=== PATIENT | female | born 1995 | race Two or more races ===

== ENCOUNTER 2024-06-29 09:42 | Emergency (ER) | payer OTHER ==
[~2024-06-29] VITALS: Ht 157.5 cm; Wt 56.7 kg
[2024-06-29 10:56] LABS: PH,URINE 6.5 (5.0-8.0); URINE APPEARANCE Clear; URINE BILIRRUBIN Negative (NEGATIVE); URINE BLOOD NHT; URINE COLOR Yellow; URINE GLUCOSE Negative (NEGATIVE); URINE KETONE Negative (NEGATIVE); URINE LEUKOCYTE Trace; URINE NITRATE Negative; URINE PROTEIN Negative (NEGATIVE); URINE UROBILINOGEN 0.2 E.U./dl
[2024-06-29 10:57] LABS: HEMATOCRIT 40.8 % (36.0-45.00); MEAN CORPUSCULAR HEMOGLOBIN 29.9 pg (27.00-32.0); MEAN CORPUSCULAR HGB CONC 34.4 g/dl (32.0-36.0); PLATELET COUNT 257 K/uL (150-450); RED BLOOD COUNT 4.68 M/uL (4.00-6.00); RED CELL DISTRIBUTION WIDTH 13.6 % (11.5-14.5)
[2024-06-29 11:00] LABS: URINE BACTERIA 828.6 uL (0.0-1933); URINE EPITHELIAL CELLS 23.5 uL (0.0-38.8); URINE RBC 3.8 uL (0.0-20.8); URINE WBC 31.3 uL (0.0-23.2)
== END 2024-06-29 13:12 | disposition home or self-care (01) ==
LOC: ER 09:44
PROVIDERS: General Practice
DX: O20.8 Other hemorrhage in early pregnancy (principal); Z3A.08 8 weeks gestation of pregnancy

== ENCOUNTER 2024-07-07 06:16 | Day surgery (SDC) | payer OTHER ==
[2024-07-06 11:56] LABS: HEMOGLOBIN 13.7 g/dL (12.0-15.00); MEAN CELL VOLUME 89.2 fL (80.00-100.00); MEAN CORPUSCULAR HEMOGLOBIN 29.8 pg (27.00-32.0); MEAN CORPUSCULAR HGB CONC 33.4 g/dl (32.0-36.0); PLATELET COUNT 268 K/uL (150-450); RED CELL DISTRIBUTION WIDTH 13.6 % (11.5-14.5)
[2024-07-06 11:58] LABS: PH,URINE 6.5 (5.0-8.0); URINE APPEARANCE Clear; URINE BILIRRUBIN Negative (NEGATIVE); URINE BLOOD Negative; URINE COLOR Yellow; URINE GLUCOSE Negative (NEGATIVE); URINE KETONE Trace (NEGATIVE); URINE LEUKOCYTE Trace; URINE NITRATE Negative; URINE PROTEIN Negative (NEGATIVE); URINE UROBILINOGEN 0.2 E.U./dl
[2024-07-06 12:01] LABS: URINE BACTERIA 134.5 uL (0.0-1933); URINE EPITHELIAL CELLS 6.6 uL (0.0-38.8); URINE WBC 3.1 uL (0.0-23.2)
[2024-07-06 12:22] LABS: URINE CAST 0.14 uL (0.0-1.40)
[2024-07-06 12:28] LABS: BILIRUBIN TOTAL 0.46 mg/dL (0.3-1.2); CREATININE SERUM 0.6 mg/dL (0.55-1.02); GFR 118.19; GLOBULINA 3.1 G/DL (2.4-3.5); POTASSIUM 3.92 mEq/L (3.5-5.1); TOTAL PROTEIN 7.1 gm/dL (6.4-8.2)
[2024-07-06 12:31] LABS: INR 1.01; PARTIAL THROMBOPLASTIN TIME 30.8 SECONDS (22.0-34.0)
[2024-07-07] MEDS ORDERED: POVIDONE-IODINE 118 ML BOTT TOP ONE (11:29)
[2024-07-07] MEDS ORDERED: BUPIVACAINE HCL/MPF 0.5% 30ML VIAL ONE (11:29)
[2024-07-07] MEDS ORDERED: LIDOCAINE HCL 1%/EPINEPHRINE 20ML VIAL IJ ONE (11:29)
[2024-07-07] MEDS ORDERED: PROMETHAZINE HCL 50 MG/ML AMPUL IM ONE (13:45)
[2024-07-07] MEDS ORDERED: MORPHINE SULFATE 4 MG/ML VIAL IV PRN (13:45)
[2024-07-07] MEDS ORDERED: MORPHINE SULFATE 4 MG/ML VIAL IV ONE (13:55)
== END 2024-07-07 17:10 | disposition home or self-care (01) ==
LOC: CIR.AMB 06:16
PROVIDERS: ATTEND Obstetrics & Gynecology
DX: O00.101 Right tubal pregnancy without intrauterine pregnancy (principal); H52.4 Presbyopia